=== PATIENT | male | born 1950 | race Caucasian/White ===

== ENCOUNTER 2018-06-19 13:54 | Emergency (ER) | payer MEDICARE, OTHER ==
--- NOTE | 2018-06-19 14:25 | ED Physician Documentation ---
General Adult - HISTORIAN Historian: patient - HPI Stated Complaint: cough Chief Complaint: General Adult Additional Information: 5-6 days of cough productive of clear mucus, raspy voice and sinus and head congestion. Has been taking only an OTC cough syrup. Denies fever, sweats. No bronchitis or pneumonia for years. Says he has respiratory/seasonal allergieswith frequent sinus infections. Burning chest discomfort with cough. - ROS CONST: denies: fever, sweating - PAST HX Past History: A-Fib (after CABG, no anticoagulant now) Surgeries/Procedures: cardiac bypass (December,) Allergies/Adverse Reactions: Allergies Allergy/AdvReac Type Severity Reaction Status Date / Time bacitracin Allergy Unknown Verified 06/18/14 07:26 [From Neosporin ([id number])] bacitracin zinc Allergy Unknown Verified 06/18/14 07:26 [From Neosporin ([id number])] ibuprofen Allergy Unknown Verified 06/18/14 07:26 neomycin sulfate Allergy Unknown Verified 06/18/14 07:26 [From Neosporin ([id number]-[id number])] polymyxin B Allergy Unknown Verified 06/18/14 07:26 [From Neosporin ([id number])] Home Medications: Ambulatory Orders Medication Instructions Recorded Ciprofloxacin/Ciprofloxa HCl 500 mg PO BID #12 tbmp.24hr 06/18/14 [Ciprofloxacin ER 500 mg Tablet] Losartan/Hydrochlorothiazide 1 each PO DAILY 06/18/14 [Losartan-Hctz 100-25 mg Tab] Omeprazole 40 mg PO DAILY 06/18/14 Potassium Chloride [Klor-Con 10] 10 meq PO DAILY 06/18/14 Azithromycin [Zithromax] 250 mg PO DAILY #6 tablet 06/19/18 predniSONE [Deltasone] 20 mg PO QD #10 tablet 06/19/18 - SOCIAL HX Smoking History: non-smoker - FAMILY HX Family History: Yes ("Everything") - VITAL SIGNS Vital Signs: Vital Signs Temp Pulse Resp BP Pulse Ox 172/91 06/18/14 07:52 - REVIEWED ASSESSMENTS Nursing Assessment Reviewed: Yes Vitals Reviewed: Yes Progress - Progress Progress: EKG: sinus rhythm with occasional supraventricular premature complexes 90 BPM. (No a fib). Report Submission Date: Jun 19, 2018 3:10:38 PM CONTROL SPECIALIST Patient Study Name: TYREL LACY Date: Jun 19, 2018 2:31:57 PM CONTROL SPECIALIST Modality Type: DX Gender: M Description: CHEST 2 VIEW : 46 Institution: [facility] Physician: CAMILA ISIDRO - ER PA and lateral chest Clinical history: Productive cough. Findings: Examination of the chest in PA and lateral views with no prior films for comparison demonstrates the lungs to be clear. Cardiac silhouette is prominent and the aorta is atherosclerotic. There are multiple sternotomy wires. Bony thorax appears intact. Impression: 1. Postoperative chest. 2. Aortic atherosclerosis. Electronically signed on Jun 19, 2018 3:10:38 PM CONTROL SPECIALIST by: Caesar Parada ED Results Lab/Radiology - Orders Orders: ED Orders Category Date Time Status CHEST 2VIEW [RAD] Stat Exams 06/19/18 Ordered CBC/PLATELET/DIFF Routine Lab 06/19/18 Ordered CMP [CMP] Routine Lab 06/19/18 Ordered INFLUENZA A&B Stat Lab 06/19/18 Uncollected EKG WITH COMPARISON Stat Ther 06/19/18 Ordered General Adult Physical Exam - PHYSICAL EXAM GENERAL APPEARANCE: mild distress EENT: eye inspection normal, ENT inspection normal, pharynx normal, TM's nml, other (raspy voice) NECK: normal inspection, supple RESPIRATORY: no resp distress, chest non-tender, breath sounds normal. No: wheezes, rales, rhonchi CVS: heart sounds normal, no murmur, irregularly irregular rhy BACK: normal inspection SKIN: warm/dry, normal color EXTREMITIES: normal range of motion (gait and stance), no evidence of injury, no edema NEURO: CN's nml as tested, motor nml, sensation nml, cognition normal Discharge Clincal Impression: Bronchitis Referrals: Jaime Santacruz DO [Primary Care Provider] - 2 Days Additional Instructions: Drink plenty of water. Follow up with your provider or return to the ER if you are not better in 48 hours. Condition: Fair Disposition: 01 HOME, SELF-CARE Decision to Admit: NO Decision Time: 15:19
--- NOTE | 2018-06-19 15:14 | Diagnostic Imaging Report ---
CAMILA ISIDRO [facility] [id number] [facility].[address] [id number] Report Submission Date: Jun 19, 2018 3:10:38 PM ARCHITECTURAL DESIGN LECTURER Patient Study Name: TYREL LACY Date: Jun 19, 2018 2:31:57 PM ARCHITECTURAL DESIGN LECTURER Modality Type: DX Gender: M Description: CHEST 2 VIEW : 46 Institution: [facility] Physician: CAMILA ISIDRO PA and lateral chest Clinical history: Productive cough. Findings: Examination of the chest in PA and lateral views with no prior films for comparison demonstrates the lungs to be clear. Cardiac silhouette is prominent and the aorta is atherosclerotic. There are multiple sternotomy wires. Bony thorax appears intact. Impression: 1. Postoperative chest. 2. Aortic atherosclerosis. Electronically signed on Jun 19, 2018 3:10:38 PM ARCHITECTURAL DESIGN LECTURER by: Caesar DOWD
[2018-06-19 15:47] VITALS: BP 176/74
[2018-06-20 10:55] LABS: MEAN CORPUSCULAR HEMOGLOBIN 27.1 pg (28.0-34.0)
[2018-06-20 10:56] LABS: BASOPHILS % 0.2 (0.0-1.5); EOSINOPHILS % 1.5 % (0.0-6.8); MONOCYTES % 6.7 % (0.0-11.0); NEUTROPHILS # 6.3 # k/uL (1.4-7.7)
[2018-06-20 10:58] LABS: eGFR (Non-African) > 60
== END 2018-06-19 15:40 | disposition home or self-care (01) ==
LOC: ED 13:54
DX: J40 Bronchitis, not specified as acute or chronic (principal)
CPT/HCPCS: 36415; 71046; 80053; 85025; 87400; 99283; 99285; S1016

== ENCOUNTER 2018-08-03 10:42 | Outpatient (CLI) | payer MEDICARE, OTHER ==
[2018-08-03 10:56] LABS: BASOPHILS % 0.4 (0.0-1.5); EOSINOPHILS % 2.8 % (0.0-6.8); MEAN CORPUSCULAR HEMOGLOBIN 27.7 pg (28.0-34.0); MONOCYTES % 9.6 % (0.0-11.0)
[2018-08-03 10:57] LABS: NEUTROPHILS # 1.8 # k/uL (1.4-7.7)
== END 2018-08-03 10:43 ==
LOC: LAB 10:42
PROVIDERS: ATTEND Nurse Practitioner Family
DX: R71.0 Precipitous drop in hematocrit (principal)
CPT/HCPCS: 36415; 83540; 83550; 85025

== ENCOUNTER 2018-08-09 17:26 | Outpatient (CLI) | payer MEDICARE, OTHER ==
[2018-08-09 18:46] LABS: EOSINOPHILS % 1.3 % (0.0-6.8); MEAN CORPUSCULAR HEMOGLOBIN 28.3 pg (28.0-34.0); MONOCYTES % 7.4 % (0.0-11.0)
[2018-08-09 18:47] LABS: BASOPHILS % 0.4 (0.0-1.5); NEUTROPHILS # 4.4 # k/uL (1.4-7.7)
== END 2018-08-09 17:28 ==
LOC: LAB 17:26
PROVIDERS: ATTEND Internal Medicine
DX: R71.0 Precipitous drop in hematocrit (principal)
CPT/HCPCS: 36415; 85025

== ENCOUNTER 2018-09-03 11:59 | Outpatient (CLI) | payer MEDICARE, OTHER ==
[2018-09-03 12:33] LABS: MEAN CORPUSCULAR HEMOGLOBIN 31.4 pg (28.0-34.0)
[2018-09-03 12:34] LABS: BASOPHILS % 0.4 % (0.0-1.5); EOSINOPHILS % 2.8 % (0.0-6.8); MONOCYTES % 8.7 % (0.0-11.0)
== END 2018-09-03 12:05 ==
LOC: LAB 11:59
PROVIDERS: ATTEND Nurse Practitioner Family
DX: R71.0 Precipitous drop in hematocrit (principal)
CPT/HCPCS: 36415; 85025